=== PATIENT | female | born 1990 | race Caucasian/White ===

== ENCOUNTER 2017-02-03 10:31 | Outpatient (CLI) | payer OTHER ==
[~2017-02-03] VITALS: Ht 162.6 cm; Wt 83.9 kg
[~2017-02-03 10:31] MED LIST: CALC-543 PO; CEPH500C PO; OSCAL; PREN1TAB62 PO
[2017-02-03 11:08] VITALS: BP 141/84; PULSE 69; Ht 162.6 cm; Wt 83.9 kg
--- NOTE | 2017-02-03 11:37 | RADRPT ---
PROCEDURE: US OB biophysical profile. CLINICAL INDICATION: decreased movements, abdominal pain TECHNIQUE: Multiple sonographic images of the pelvis were obtained. The images were reviewed on a PACS workstation. COMPARISON: No prior studies are available for comparison. FINDINGS: There is a single viable intrauterine gestation. Cardiac activity is present with 128 beats per min [place]. There is a transverse maternal right presentation. The placenta is anterior. There is no evidence of placental abruption. There is a normal amount of amniotic fluid with an JUAN ANTONIO = 10.2 cm. Biophysical profile: movement 2/2 tone 2/2. breathing 2/2 JUAN ANTONIO 2/2 Total 02/17 RPTAT: AA . IMPRESSION: Normal biophysical profile. . .Chan Paez MD, Date Time Electronically viewed and signed by .Chan Paez MD, MD on 02/03/2017 11:37 .S/
--- NOTE | 2017-02-03 12:30 | CONS ---
Date/Time of Note Date/Time of Note DATE: 02/03/17 TIME: 12:25 Consultation Date/Type/Reason Admit Date/Time February 03, 2017 Triage consult Reason for Consultation This patient is a 26 years old 2 para 1 who had her first delivery by section. Her estimated date of confinement is 03/12/2017 which makes her 34 weeks and 5 days today. She developed cholestasis of during this and is currently on Actigall 300 mg 3 times a day. She is here for monitoring and evaluation of her . On examination she is a well-developed well-nourished patient in no acute distress. Her ear nose throat appear to be normal ,not much of erythema on the palm of the hand with sole of her feet however she does have some degree of pruritus in the chest and abdomen. Her vital signs are normal, with blood pressure of 141/84 pulse rate, 69, respiration 18, and temperature 97.9. Constitutional: No chills, No diaphoresis, No disoriented, No febrile, No improved, No no complaints, No other, No poor po, No requiring IVF, No requiring O2 Eyes: No discharge, No no complaints, No other, No pain, No redness, No visual change ENT: No bleeding, No congestion, No discharge, No dysphagia, No no complaints, No other, No pain, No sore throat Respiratory: No cough, No no complaints, No other, No pain, No pleuritic pain, No shortness of breath, No sputum, No wheezing Cardiovascular: No chest pain, No edema, No lightheadedness, No no complaints, No orthopenea, No other, No palpitations, No paroxysmal nocturnal dyspnea Gastrointestinal: No blood, No constipation, No decreased appetite, No diarrhea , No flatus, No nausea, No no complaints, No other, No pain, No passing stool, No vomiting Genitourinary: other (Pelvic exam was not performed due to the fact that she did not have any contractions), No bleeding, No discharge, No dysuria, No flank pain, No hematuria, No no complaints Musculoskeletal: No back pain, No bone/joint pain, No neck pain, No no complaints, No other, No restricted range of motion, No swelling Skin: No bruising, No erythema, No laceration, No no complaints, No other, No pruritis, No rash, No skin lesions Neurologic: other (Knee-jerk reflexes normal), No confusion, No dizziness, No focal-weakness, No headache, No no complaints , No seizure, No syncope Endocrine: No dry skin, No no complaints, No other, No polydypsia, No polyuria , No temp intolerance Psychological: No anxiety, No confusion, No depression, No nl mood/affect, No no complaints, No other, No suicidal Additional Comments On ultrasound study report is a single viable intrauterine gestation with the cardiac activity at the 128 bpm. Fetus is in transverse position, placenta is anterior no evidence of previa her amniotic fluid index is 10.2 cm her biophysical profile was 8/8 Disposition. With these normal findings patient was discharged home to be followed back again for further monitoring in 4-5 days End of dictation Social History Smoking Status: Former smoker Exam/Review of Systems Vital Signs Vitals Vital Signs Date Time Temp Pulse Resp B/P Pulse Ox O2 Delivery O2 Flow Rate FiO2 02/03/17 11:08 97.9 69 141/84 CAROLINE POOLE MD Feb 03, 2017 12:30
== END 2017-02-03 12:34 | disposition home or self-care (01) ==
LOC: OBT 10:31 → L-D 10:32 → OBT 12:34
PROVIDERS: ATTEND Obstetrics & Gynecology
DX: O99.613 Diseases of the digestive system complicating pregnancy, third trimester (principal); Z3A.34 34 weeks gestation of pregnancy
CPT/HCPCS: 76818; Z7500; G0463

== ENCOUNTER 2017-02-20 17:00 | Inpatient (IN) | payer OTHER ==
[~2017-02-20] VITALS: Ht 162.6 cm; Wt 87.3 kg
[2017-03-05] MEDS ORDERED: CEFAZOLIN 1 GM INJ ONE (07:00)
--- NOTE | 2017-03-05 12:02 | NSTRPT ---
NST Information Datetime Report Generated by CPN: 03/05/2017 12:02 Datetime: 02/27/2017 08:10 NST Information EGA: 38.1 Test Number: 7 Time on Monitor: 02/27/2017 08:50 Time off Monitor: 02/27/2017 09:11 NST Duration (Min): 21 Reason for NST: Cholestasis; Gestational Hypertension Test and Monitor Explained: Monitor Explained; Test Explained Pulse: 56 Resp: 16 SBP: 142 DBP: 81 Test Evaluation NST Interventions: None Patient States Movement: Present Contraction Frequency: NO UC FHR Baseline : 135 Variability: Moderate 6-25bpm Accelerations: 15X15 Decelerations: None FHR Category: Category I NST Results: Reactive Comments: To u/s, CEPHALIC, JUAN ANTONIO 8.5 0913-Pt home undelivered with labor precautions, kick count instructions reviewed and follo w up NST appt given. States understanding and denies further questions at this time. Electronically Signed By E-Signature: with User ID: [id number] Datetime: 02/24/2017 07:55 NST Information EGA: 37.5 NST Duration (Min): 30 Datetime: 02/20/2017 08:07 NST Information EGA: 37.1 NST Duration (Min): 20 Datetime: 02/17/2017 08:43 NST Information EGA: 36.5 NST Duration (Min): 43 Datetime: 02/13/2017 08:26 NST Information EGA: 36.1 NST Duration (Min): 38 Datetime: 02/10/2017 08:10 NST Information EGA: 35.5 NST Duration (Min): 20 Datetime: 02/06/2017 10:37 NST Information EGA: 35.1 NST Duration (Min): 34
[2017-03-05] MEDS ORDERED: METHYLERGONOVINE 0.2 MG INJ IM PRN ×2 (12:30→22:00)
[2017-03-05] MEDS ORDERED: CEFAZOLIN 2 GM/50 ML (PMX) 50 ML IV SCH (12:30)
[2017-03-05] MEDS ORDERED: OXYTOCIN 30 UNITS/LR 500 ML IV SCH (12:30)
[2017-03-05] MEDS ORDERED: CARBOPROST 250 MCG INJ IM PRN ×2 (12:30→22:00)
[2017-03-05] MEDS ORDERED: OXYTOCIN 30 UNITS/LR 500 ML IV PRN ×2 (12:30→22:00)
[2017-03-05] MEDS ORDERED: MISOPROSTOL 200 MCG TAB PR PRN ×2 (12:30→22:00)
[2017-03-05] MEDS: LACTATED RINGER'S 1,000 ML IV SCH ×3 (12:48→22:20)
[2017-03-05 12:49] VITALS: Ht 162.6 cm; Wt 87.3 kg
[2017-03-05 12:50] VITALS: BP 145/92; PULSE 79; RESP 20
[2017-03-05 12:54] LABS: BASOPHILS % 0.4 % (0.0-2.0); EOSINOPHILS # 0.4 10^3/ul (0.0-0.5); EOSINOPHILS % 4.1 % (0.0-7.0); HEMATOCRIT 40.1 % (37.0-47.0); HEMOGLOBIN 13.3 g/dl (12.0-16.0); LYMPHOCYTES # 2.8 10^3/ul (0.8-2.9); LYMPHOCYTES % 28.2 % (15.0-51.0); MEAN CORPUSCULAR HEMOGLOBIN 28.7 pg (29.0-33.0); MEAN CORPUSCULAR HGB CONC 33.2 g/dl (32.0-37.0); MEAN CORPUSCULAR VOLUME 86.6 fl (82.0-101.0); MEAN PLATELET VOLUME 11.5 fl (7.4-10.4); MONOCYTE # 0.6 10^3/ul (0.3-0.9); MONOCYTES % 6.4 % (0.0-11.0); NEUTROPHILS % 58.6 % (39.0-77.0); PLATELET COUNT 181 10^3/UL (140-415); RED BLOOD COUNT 4.63 10^6/ul (4.20-5.40); RED CELL DISTRIBUTION WIDTH 14.1 % (11.5-14.5); WHITE BLOOD COUNT 9.9 10^3/ul (4.8-10.8)
[2017-03-05] MEDS ORDERED: FER325 PO (13:05)
[2017-03-05 13:15] LABS: INR 0.88; PROTIME 11.9 Sec (12.2-14.2); PT RATIO 0.9
[2017-03-05 13:16] LABS: PARTIAL THROMBOPLASTIN TIME 28.4 Sec (25.0-35.0)
[2017-03-05 13:21] LABS: TOTAL PROTEIN 5.9 g/dl (6.1-8.1)
[2017-03-05 13:22] LABS: ALBUMIN 3.2 g/dl (3.3-4.9); ALBUMIN/GLOBULIN RATIO 0.91; CALCIUM 9.3 mg/dl (8.4-10.2); CREATININE 0.45 mg/dl (0.44-1.00); TOTAL PROTEIN 6.7 g/dl (6.1-8.1)
[2017-03-05 13:57] LABS: ADD UMIC YES; UR AMORPHOUS CRYSTAL FEW /HPF (NONE SEEN); UR ASCORBIC ACID NEGATIVE (NEGATIVE); UR BACTERIA FEW /HPF (NONE SEEN); UR BILIRUBIN (Dip) NEGATIVE (NEGATIVE); UR BLOOD (Dip) NEGATIVE (NEGATIVE); UR CLARITY SLIGHTLY CLOUDY (CLEAR); UR COLOR YELLOW (YELLOW); UR GLUCOSE (Dip) NEGATIVE (NEGATIVE); UR KETONES (Dip) NEGATIVE (NEGATIVE); UR LEUKOCYTE ESTERASE (Dip) 3+ Leu/ul (NEGATIVE); UR NITRITE (Dip) NEGATIVE (NEGATIVE); UR RBC 15 /HPF (0-5); UR SPECIFIC GRAVITY (Dip) 1.005 (1.003-1.030); UR SQUAMOUS EPITHELIAL CELL FEW /HPF (FEW); UR TOTAL PROTEIN (Dip) NEGATIVE (NEGATIVE); UR UROBILINOGEN (Dip) NEGATIVE (NEGATIVE)
[2017-03-05 14:01] LABS: BARBITURATES Negative (NEGATIVE); BENZODIAZEPINES Negative (NEGATIVE); CANNABINOIDS Negative (NEGATIVE); COCAINE Negative (NEGATIVE); OPIATES Negative (NEGATIVE)
[2017-03-05] MEDS ORDERED: ONDANSETRON 4 MG INJ ONE (17:16)
[2017-03-05] MEDS ORDERED: METOCLOPRAMIDE 10 MG INJ ONE (17:16)
[2017-03-05] MEDS ORDERED: morphine SULFATE/PF (10 MG/10 ML) INJ ONE (17:16)
[2017-03-05] MEDS ORDERED: PHENYLephrine (100 MCG/ML) 5ML SYG ONE ×3 (17:17→18:09)
[2017-03-05] MEDS ORDERED: OXYTOCIN 10 UNIT INJ ONE (17:17)
[2017-03-05] MEDS ORDERED: DEXAMETHASONE 4 MG/ML 1 ML INJ ONE (17:17)
[2017-03-05] MEDS ORDERED: KETOROLAC 30 MG INJ ONE (17:17)
[2017-03-05] MEDS ORDERED: NALOXONE (0.4 MG/ML) INJ IV PRN (18:00)
[2017-03-05] MEDS ORDERED: morphine 2 MG INJ IV PRN (18:00)
[2017-03-05] MEDS ORDERED: NALBUPHINE HCL (10 MG/1 ML) INJ IV PRN (18:00)
[2017-03-05] MEDS ORDERED: DIPHENHYDRAMINE 50 MG INJ IV PRN (18:00)
[2017-03-05] MEDS ORDERED: HYDROCODONE/APAP (5/325) TAB PO PRN (18:00)
[2017-03-05] MEDS ORDERED: HYDROmorphONE 1 MG/ML SYG IV PRN ×2 (18:00)
[2017-03-05] MEDS ORDERED: ACETAMINOPHEN 500 MG TAB PO PRN (18:00)
[2017-03-05] MEDS ORDERED: ONDANSETRON 4 MG INJ IV PRN (18:00)
--- NOTE | 2017-03-05 18:17 | HP ---
Date/Time of Note Date/Time of Note DATE: 03/05/17 TIME: 18:14 OB - History Hx of Present Free Text/Dictation Admitted for repeat section at term Chief Complaint: None Last Menstrual Period: Jun 14, 2016 Estimated Due Date: Mar 12, 2017 : 2 Para: 1 Care: Good Care Ultrasounds: Normal mid trimester US Obstetrical Complications: None Medical Complications: None Past Family/Social History * Past Medical, Surgical, Family and Obstetric Histories reviewed from chart. Blood Type: O+ Rubella: immune RPR/VDRL: Negative GBS Status: Positive HBsAG: Negative OB Admission Exam Vital Signs Vital Signs Vital Signs Date Time Temp Pulse Resp B/P Pulse Ox O2 Delivery O2 Flow Rate FiO2 03/05/17 12:50 98.0 79 20 145/92 98 Room Air Physical Exam HEENT: WNL Heart: Rhythm Normal Lungs: Clear, Equal Abdomen: WNL Extremities: Normal Reflexes: Normal Cervical Dilatation: None Effacement: 0% Station: -3 Membranes: Intact Amniotic Fluid: Clear Heart Rate: 140's Accelerations: Accelerations Present Decelerations: No Decelerations Varibility: Marked Contractions on Admission: None Last 72 hours Lab Results CBC & BMP 03/05/17 12:40 Liver Function Test 03/05/17 12:40 Alanine Aminotransferase (ALT/SGPT) 39 Albumin 3.2 L Alkaline Phosphatase 179 H Aspartate Amino Transf (AST/SGOT) 40 Direct Bilirubin 0.00 Total Protein 6.7 OB Assessment/Plan Reason for admission: section Other Assessment: Term gestation Previous section Other plan: Repeat ROSALIA MENDEZ MD Mar 05, 2017 18:16
--- NOTE | 2017-03-05 18:19 | OPR ---
Operative Report Planned Procedure Procedure date Mar 05, 2017 Procedure(s) Benito Performed by: ROSALIA MENDEZ MD Assisting provider: CAROLINE POOLE MD Anesthesiologist: PARISH ALEXANDRA MD Pre-procedure diagnosis Term gestation Previous Anesthesia Type: spinal Procedure Description Under satisfactory anaesthesia a Pfannenstiel incision was made two fingerbreadth above and parallel to the symphysis of pubis around the previous scar and previous scar was removed Incision was extended laterally to the border of the Recti muscles on either sides. Incision was carried down with sharp and blunt dissection until fascia was reached. Anterior Recti muscle fascia was incised in mid portion and incision extended laterally to the border of skin incision. Fascia was mobilized from muscle superiorly and Recti muscles were from midline using sharp and blunt dissection. Peritoneum was visualized; Avoiding bowel and bladder it was incised . Incision was extended superiorly and inferiorly. Bladder blade was placed. Posterior peritoneum covering the lower segment of the uterus and lower segment of the uterus were incised.Low transverse uterine incision was made on lower segment of the uterus. Incision extended laterally to the border of Round Lig. on either sides and baby was delivered from OT. position . Amniotic fluid appeared clear. Cord blood was obtained and cord had 3 vessels . Placenta was delivered spontaneously and appeared intact and complete. Intrauterine cavity was rubbed with a laparotomy sponge. Uterine incision was closed in 2 layers using running stitches of No1 Monocryl. Hemostasis appeared secure. Ovaries and Announcing needle, lap sponge and instrument count to be correct abdomen was closed in layers as follows: Peritoneum and Recti muscles with running stitches of 20 Vicryl. Fascia with running stitch of No 1 PDS. Subcutaneous tissue with running stitches of 20 Chromic and skin was closed using kimo. Patient tolerated the procedure well and was transferred to [facility] in good condition. Post-Procedure Post-procedure diagnosis Status post repeat Findings: Live Baby Nuchal cord 1 Normal right and left fallopian tubes and ovaries Complications: None Pt Condition post procedure: stable Disposition: PACU Physician Certification I, the undersigned physician, hereby certify that I have discussed the procedure described in this consent form with this patient (or the patient's legal sales representative raw fibers), including: * The risk and benefits of the procedure; * Any adverse reactions that may reasonably be expected to occur; * Any alternative efficacious methods of treatment which may be medically viable ; * The potential problems that may occur during recuperation; * Potential for blood transfusion and associated risks/benefits; and * Any research or economic interest I may have regarding this treatment. I further certify that the patient/legally responsible person was encouraged to ask question and that all questions were answered. ROSALIA MENDEZ MD Mar 05, 2017 18:19
[2017-03-05] MEDS: KETOROLAC 30 MG INJ IV PRN (20:12)
[2017-03-05 21:40] VITALS: BP 139/89; PULSE 55; RESP 18
[2017-03-05] MEDS ORDERED: NA PHOSPHATE/BIPHOS 133 ML ENEMA PR PRN (22:00)
[2017-03-05] MEDS: LANOLIN 7 GM TUBE TOP PRN (22:19)
[2017-03-05] MEDS: CEFAZOLIN 2 GM/50 ML (PMX) 50 ML IV SCH (22:19)
[2017-03-06 00:01] VITALS: BP 135/86; PULSE 73; RESP 18
[2017-03-06 04:00] VITALS: BP 138/85; PULSE 91; RESP 18
[2017-03-06] MEDS: KETOROLAC 30 MG INJ IV PRN ×2 (05:17→12:20)
[2017-03-06] MEDS: CEFAZOLIN 2 GM/50 ML (PMX) 50 ML IV SCH ×2 (05:26→13:54)
[2017-03-06] MEDS: CLINDAMYCIN 300 MG CAP PO SCH ×4 (05:26→18:38)
[2017-03-06] MEDS: LACTATED RINGER'S 1,000 ML IV SCH (06:53)
--- NOTE | 2017-03-06 06:56 | OPPN ---
Date/Time of Note Date/Time of Note DATE: 03/06/17 TIME: 06:55 Post-Anesthesia Notes Post-Anesthesia Note Last documented vital signs Vital Signs Date Time Temp Pulse Resp B/P Pulse Ox O2 Delivery O2 Flow Rate FiO2 03/06/17 04:00 98.1 91 18 138/85 Room Air 03/05/17 12:50 98 Activity: WNL Respiratory function: WNL Cardiovascular function: WNL Mental status: Baseline Pain reasonably controlled: Yes Hydration appropriate: Yes Nausea/Vomiting absent: Yes PARISH ALEXANDRA MD Mar 06, 2017 06:55
[2017-03-06 08:30] VITALS: BP 128/78; PULSE 88; RESP 15
[2017-03-06 09:42] LABS: WHITE BLOOD COUNT 13.2 10^3/ul (4.8-10.8)
[2017-03-06 09:43] LABS: BASOPHILS % 0.2 % (0.0-2.0); EOSINOPHILS # 0.1 10^3/ul (0.0-0.5); EOSINOPHILS % 0.5 % (0.0-7.0); HEMATOCRIT 33.2 % (37.0-47.0); LYMPHOCYTES # 2.6 10^3/ul (0.8-2.9); LYMPHOCYTES % 19.3 % (15.0-51.0); MEAN CORPUSCULAR HEMOGLOBIN 29.3 pg (29.0-33.0); MEAN CORPUSCULAR HGB CONC 33.1 g/dl (32.0-37.0); MEAN CORPUSCULAR VOLUME 88.5 fl (82.0-101.0); MEAN PLATELET VOLUME 11.7 fl (7.4-10.4); MONOCYTE # 0.7 10^3/ul (0.3-0.9); MONOCYTES % 5.3 % (0.0-11.0); NEUTROPHILS % 73.6 % (39.0-77.0); PLATELET COUNT 157 10^3/UL (140-415); RED BLOOD COUNT 3.75 10^6/ul (4.20-5.40); RED CELL DISTRIBUTION WIDTH 14.1 % (11.5-14.5)
[2017-03-06] MEDS: SENNA/DOCUSATE NA (8.6MG/50MG) TAB PO SCH ×2 (10:00→21:18)
[2017-03-06] MEDS: morphine 4 MG/ML VIAL IV PRN ×2 (10:01→16:02)
[2017-03-06] MEDS ORDERED: BISACODYL 10 MG SUPP PR ONE (10:30)
[2017-03-06] MEDS: LANOLIN 7 GM TUBE TOP PRN (10:58)
[2017-03-06 12:00] VITALS: BP 112/64; PULSE 85; RESP 16
[2017-03-06 16:00] VITALS: BP 120/71; PULSE 83; RESP 15
--- NOTE | 2017-03-06 18:30 | PN ---
Date/Time of Note Date/Time of Note DATE: 03/06/17 TIME: 18:28 Assessment/Plan VTE Prophylaxis VTE Prophylaxis Intervention: ambulation Lines/Catheters IV Catheter Type (from Nrsg): Peripheral IV Assessment/Plan Assessment/Plan Status post postop day 1 Advanced diet and ambulate Monitor vital signs Continue to provide supportive care Subjective 24 Hr Interval Summary No bowel movements Passing flatus Complaining of minimal pain around the incision Constitutional: BM, ambulates, flatus, improved, no complaints, urine output Pain Control: well controlled Exam/Review of Systems Vital Signs Vitals Vital Signs Date Time Temp Pulse Resp B/P Pulse Ox O2 Delivery O2 Flow Rate FiO2 03/06/17 16:00 98.0 83 15 120/71 Room Air 03/06/17 14:15 97 21 Intake and Output 03/05/17 03/05/17 03/06/17 15:00 23:00 07:00 Intake Total 1000 ml 1300 ml 50 ml Output Total 300 ml 525 ml 700 ml Balance 700 ml 775 ml -650 ml Exam Free Text/Dictation Abdomen is soft and nontender Abdomen is not distended, bowel sounds are present Incision is covered Constitutional: alert, oriented, well developed Psych: nl mood/affect, no complaints Head: atraumatic, normocephalic Eyes: EOMI, nl conjunctiva, nl lids, nl sclera ENMT: mucosa pink and moist, nl external ears & nose, nl lips & teeth, nl nasal mucosa & septum Neck: non-tender, supple Respiratory: clear to auscultation, normal air movement Cardiovascular: nl pulses, regular rate and rhythm Gastrointestinal: nl liver, spleen, non-tender, soft Drains None Musculoskeletal: nl extremities to inspection, nl gait and stance Extremities: normal pulses Neurological: 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
[2017-03-06] MEDS: OXYCODONE/ACETAMINOPHEN (5/325) TAB PO PRN (18:39)
[2017-03-06 20:15] VITALS: BP 138/91; PULSE 82; RESP 18
[2017-03-06] MEDS: IBUPROFEN 800 MG TAB PO SCH (21:18)
[2017-03-07 04:00] VITALS: BP 124/78; PULSE 76; RESP 18
[2017-03-07] MEDS: CLINDAMYCIN 300 MG CAP PO SCH ×5 (06:54→23:39)
[2017-03-07] MEDS: IBUPROFEN 800 MG TAB PO SCH ×3 (06:54→23:38)
[2017-03-07 07:29] LABS: BASOPHIL # 0.1 10^3/ul (0.0-0.1); BASOPHILS % 0.5 % (0.0-2.0); EOSINOPHILS # 0.4 10^3/ul (0.0-0.5); EOSINOPHILS % 3.2 % (0.0-7.0); HEMATOCRIT 32.5 % (37.0-47.0); HEMOGLOBIN 11.2 g/dl (12.0-16.0); LYMPHOCYTES # 3.2 10^3/ul (0.8-2.9); LYMPHOCYTES % 28.7 % (15.0-51.0); MEAN CORPUSCULAR HEMOGLOBIN 30.8 pg (29.0-33.0); MEAN CORPUSCULAR HGB CONC 34.5 g/dl (32.0-37.0); MEAN CORPUSCULAR VOLUME 89.3 fl (82.0-101.0); MEAN PLATELET VOLUME 11.3 fl (7.4-10.4); MONOCYTE # 0.5 10^3/ul (0.3-0.9); MONOCYTES % 4.7 % (0.0-11.0); NEUTROPHILS % 61.6 % (39.0-77.0); PLATELET COUNT 162 10^3/UL (140-415); RED BLOOD COUNT 3.64 10^6/ul (4.20-5.40); RED CELL DISTRIBUTION WIDTH 14.2 % (11.5-14.5); WHITE BLOOD COUNT 11.1 10^3/ul (4.8-10.8)
[2017-03-07 08:15] VITALS: BP 128/92; PULSE 82; RESP 16
[2017-03-07] MEDS: HYDROCODONE/APAP (5/325) TAB PO PRN ×2 (09:09→13:35)
[2017-03-07] MEDS: SENNA/DOCUSATE NA (8.6MG/50MG) TAB PO SCH ×2 (09:09→20:52)
--- NOTE | 2017-03-07 14:03 | DS ---
Date/Time of Note Date/Time of Note home today or next day DATE: 03/07/17 TIME: 14:00 Discharge Summary Admission/Discharge Info Admit Date/Time Mar 05, 2017 at 11:59 Discharge Date/Time 03/08/2017 Discharge Diagnosis S/P C/S Patient Condition: Good Procedures repeat C/S Hx of Present Illness 26 y/o female had repeat C/S Hospital Course Uncomplicated Home Meds Reported Medications Ferrous Sulfate* (Ferrous Sulfate*) 325 Mg Tabec, 325 MG PO DAILY, TAB 03/05/17 Calcium Carb & Cit-Vitamin D3 (Calcium + D3 ER) 1 Each Tablet.er, 1 EACH PO DAILY 02/27/13 [Oscal] No Conflict Check, BID 02/16/13 Cephalexin* (Cephalexin*) 500 Mg Capsule, 500 MG PO Q6 02/16/13 Vit-Iron Fumarate-FA ( Vitamin Tablet) 1 Each Tablet, 1 EACH PO DAILY 02/16/13 Follow-up Plan 3-4 days in clinic for stapel removal Primary Care Provider Not On Staff Doctor Pending Labs Laboratory Tests Test 03/07/17 06:31 White Blood Count 11.110^3/ul (4.8-10.8) Red Blood Count 3.6410^6/ul (4.20-5.40) Hemoglobin 11.2g/dl (12.0-16.0) Hematocrit 32.5% (37.0-47.0) Mean Corpuscular Volume 89.3fl (82.0-101.0) Mean Corpuscular Hemoglobin 30.8pg (29.0-33.0) Mean Corpuscular Hemoglobin Concent 34.5g/dl (32.0-37.0) Red Cell Distribution Width 14.2% (11.5-14.5) Platelet Count 77711^3/UL (140-415) Mean Platelet Volume 11.3fl (7.4-10.4) Neutrophils % 61.6% (39.0-77.0) Lymphocytes % 28.7% (15.0-51.0) Monocytes % 4.7% (0.0-11.0) Eosinophils % 3.2% (0.0-7.0) Basophils % 0.5% (0.0-2.0) Nucleated Red Blood Cells % 0.0/100WBC (0.0-0.0) Neutrophils # (Manual) 6.910^3/ul (1.7-7.5) Lymphocytes # 3.210^3/ul (0.8-2.9) Monocytes # 0.510^3/ul (0.3-0.9) Eosinophils # 0.410^3/ul (0.0-0.5) Basophils # 0.110^3/ul (0.0-0.1) Nucleated Red Blood Cells # 0.010^3/ul (0.0-0.0) ROSALIA MENDEZ MD Mar 07, 2017 14:03
--- NOTE | 2017-03-07 14:05 | DS ---
Date/Time of Note Date/Time of Note home today or next day DATE: 03/07/17 TIME: 14:03 Obstetrical Discharge Record Final Diagnosis Final Diagnosis: Term delivered Other Final Diagnosis S/P repeat C/S Section Section: Repeat Condition on Discharge Physical Assessment Last Vitals: see nurses notes Voiding: Yes Bowel Movement: Yes Breast: Soft, non-tender, Filling Fundus: Firm Abdomen and Incision: soft BS + incision: healing well Episiotomy: NA Calf Tenderness: No Patient Condition: Good ROSALIA MENDEZ MD Mar 07, 2017 14:04
--- NOTE | 2017-03-07 14:06 | PD.PPDC ---
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
[2017-03-07] MEDS ORDERED: IBUP800T25 PO (14:07)
[2017-03-07 16:00] VITALS: BP 126/87; PULSE 79; RESP 18
[2017-03-07 20:00] VITALS: BP 130/91; PULSE 86; RESP 16
[2017-03-07] MEDS: OXYCODONE/ACETAMINOPHEN (5/325) TAB PO PRN (20:52)
[2017-03-08] MEDS: OXYCODONE/ACETAMINOPHEN (5/325) TAB PO PRN ×3 (03:12→12:41)
[2017-03-08 04:00] VITALS: BP 134/72; PULSE 69; RESP 20
[2017-03-08] MEDS: IBUPROFEN 800 MG TAB PO SCH ×2 (05:41→13:36)
[2017-03-08] MEDS: CLINDAMYCIN 300 MG CAP PO SCH ×2 (05:41→12:41)
[2017-03-08 08:45] VITALS: BP 127/61; PULSE 88; RESP 17
[2017-03-08] MEDS ORDERED: MEASLES,MUMPS,RUBELLA VACCINE INJ SC* ONE (09:00)
[2017-03-08] MEDS ORDERED: DIPHTH/TET/ACEL PERTUSS (ADULT) 0.5 ML VIAL IM* ONE (09:00)
[2017-03-08] MEDS: SENNA/DOCUSATE NA (8.6MG/50MG) TAB PO SCH (11:32)
== END 2017-03-08 16:00 | disposition home or self-care (01) | DRG 766 ==
LOC: L-D 03-05 11:59 → PP1 03-05 21:42
PROVIDERS: ADMIT Obstetrics & Gynecology; ATTEND Obstetrics & Gynecology
PROC: 3E033VJ Introduction of Other Hormone into Peripheral Vein, Percutaneous Approach (ICD-10-PCS; 2017-03-05)
PROC: 10D00Z1 Extraction of Products of Conception, Low, Open Approach (ICD-10-PCS; principal; 2017-03-05 14:00)
DX: O34.211 Maternal care for low transverse scar from previous cesarean delivery (principal); Z37.0 Single live birth; Z3A.39 39 weeks gestation of pregnancy
CPT/HCPCS: 80053; 80076; 80307; 81001; 85025; 85610; 85730; 86592; 86850; 86900; 86901; 87340; 94760; 99464; J0690; J1100; J1170; J1200; J1885; J2270; J2274; J2370; J2405; J2590; J2765; J7120

== ENCOUNTER 2017-03-10 12:51 | Emergency (ER) | payer SELFPAY ==
[~2017-03-10] VITALS: Ht 165.1 cm; Wt 85.0 kg
[~2017-03-10 12:51] MED LIST changes: -CEPH500C PO; +FER325 PO; +IBUP800T25 PO
[2017-03-10 12:55] VITALS: Ht 165.1 cm; Wt 85.0 kg
== END 2017-03-10 14:45 | disposition left against medical advice (07) ==
LOC: E/R 12:51
DX: Z53.21 Procedure and treatment not carried out due to patient leaving prior to being seen by health care provider (principal)